=== PATIENT | female | born 1965 | race Caucasian/White ===

== ENCOUNTER → 2019-06-23 08:51 | Outpatient (POV) | payer OTHER, SELFPAY | PROVIDERS: Visit Provider Dermatology | DX: Z00.00 Encounter for general adult medical examination without abnormal findings (principal) ==

== ENCOUNTER 2022-01-01 13:02 | Emergency (ER) | payer OTHER, SELFPAY ==
--- NOTE | 2022-01-01 13:01 | ECG_ITS ---
APPROVED REPORT Exam: Resting ECG HR:87 bpm ECG Measurements Heart Rate 87 AXES WY 154 P 77 QRSd 101 QRS 53 QT 390 T 73 QTc 434 Conclusion SINUS RHYTHM NORMAL ECG UNCONFIRMED REPORT Electronically signed by : Florencio Watson MD 01/02/2022 21:09:39
[2022-01-01 13:02] VITALS: BP 147/80; PULSE 97; RESP 18; TEMP 37; O2SAT 98; BMI 28.3
--- NOTE | 2022-01-01 13:03 | HMH.EDCP ---
ED Disposition Clinical Impression: Costochondritis Disposition: Home, Self-Care Condition on Discharge: Fair Instructions: DI for Atypical Chest Pain Additional Instructions: Follow-up with your primary care doctor in about 2 to 3 days even if you feel well. Return to the emergency department immediately if you feel worse in any way. - Critical Care Critical Care Time: No Attestation: On , the high probability of a clinically significant, sudden or life threatening deterioration of the following system(s) required my full and direct attention, intervention and personal management. The time I documented below is in addition to time spent performing reported procedures but includes the following listed in this critical care notation. Medical Decision Making - Medical Records Medical records reviewed: Yes: I reviewed the patient's medical records. - Rob Inquiry Pt receiving controlled substance: No Vital Signs: 01/01/22 13:02 01/01/22 13:31 01/01/22 14:00 Temperature 98.6 F Temperature Source Oral Pulse Rate 84 81 Pulse Rate [Right] 97 H Respiratory Rate 18 16 16 Blood Pressure 131/59 L 151/70 H Blood Pressure [Right Arm] 147/80 H Blood Pressure Mean 98 97 Blood Pressure Mean [Right Arm] 102 Blood Pressure Source [Right Arm] Automatic Cuff Blood Pressure Position [Right Arm] Sitting 02 Sat by Pulse Oximetry 98 98 95 Oxygen Delivery Method Room Air - Lab Data Lab results reviewed: Yes: I reviewed the patient's lab results. Lab Results 01/01/22 13:03: Sodium 140, Potassium 3.2 L, Chloride 105, Carbon Dioxide 27, Anion Gap 11.2, BUN 18 H, Creatinine 0.80, Estimated Creat Clear 104, Estimated GFR 75, Est GFR ( Amer) 90, Glucose 191 H, Calcium 9.2, Total Bilirubin 0.4, AST 34, ALT 32, Alkaline Phosphatase 84, Troponin I < 0.01, Total Protein 6.9, Albumin 4.2, Globulin 2.7, Albumin/Globulin Ratio 1.6 01/01/22 13:05: WBC 15.4 H, RBC 4.61, Hgb 14.2, Hct 42.7, MCV 92.7, MCH 30.8, MCHC 33.2, RDW 13.9, Plt Count 296, MPV 8.1, Neut % (Auto) 74.9, Lymph % (Auto) 18.4, Saunders % (Auto) 4.3, Eos % (Auto) 1.1, Baso % (Auto) 1.2, Neut # (Auto) 11.5 H, Lymph # (Auto) 2.8, Saunders # (Auto) 0.7, Eos # (Auto) 0.2, Baso # (Auto) 0.2, Total Counted 100, Neutrophils % (Manual) 70, Lymphocytes % (Manual) 23, Monocytes % (Manual) 5, Eosinophils % (Manual) 2, Platelet Estimate Normal, RBC Morphology Normal Result diagrams: 01/01/22 13:05 01/01/22 13:03 Orders (Tests/Meds): ORDERS Category Date Time Status Troponin I Q3H Lab 01/01/22 16:15 Ordered - Radiology Data #1 Image Reviewed: Yes I reviewed the patient's radiology results, Yes I reviewed the patient's radiology image, Yes I have reviewed radiologist's interpretation Preliminary Findings: Normal/NAD - ECG Data Tracing #1 I reviewed this ECG and interpreted as documented below: The patient is EKG was done at 1:01 PM. It shows a normal sinus rhythm with a ventricular rate of 87 bpm there are no abnormalities seen. The axes are normal the intervals are normal. There is no ischemia. Normal Sinus Rhythm: Yes Medical Decision Narrative: The patient's work-up in the emergency department did not reveal any life-threatening or dangerous causes for the patient's chest pain. The pain is reproducible with palpation of the anterior chest wall. This is highly suggestive of costochondritis. The pain has been ongoing for approximately 2 days and has been constant. Her troponin is undetectable. Is very low risk for coronary artery disease/myocardial infarction today. His chest x-ray was unremarkable. She has an elevated white blood cell count which is a nonspecific finding. I feel that the patient can be safely discharged home in stable condition. Chest Pain HPI - General Stated Complaint: chest pain Time Seen by Provider: 01/01/22 13:03 Mode of Arrival: Ambulatory - History of Present Illness HPI narrative: The patient prese
--- NOTE | 2022-01-01 13:07 | XR_ITS ---
FINAL REPORT CLINICAL HISTORY: CP FINDINGS: SINGLE VIEW CHEST The heart size is enlarged. The mediastinum is within normal limits. No acute pulmonary abnormality is identified. There is no evidence of pneumothorax. The bony thorax is intact. IMPRESSION: No acute cardiopulmonary process. Reviewed, Interpreted and Dictated by Donald Delong III, MD Transcribed by Juvencio Kapoor Authenticated by Donald Delong III, MD on 01/01/2022 02:27:16 PM [facility]
[2022-01-01 13:18] LABS: Basophils # 0.2 K/mm3 (0-0.2); Basophils % 1.2 % (0.1-2.0); Eosinophils # 0.2 K/mm3 (0.0-0.4); Eosinophils % 1.1 % (0.1-12.0); Hematocrit 42.7 % (37.0-47.0); Hemoglobin 14.2 g/dL (12.2-16.2); Lymphocytes # 2.8 K/mm3 (0.7-4.5); Lymphocytes % 18.4 % (10-50); Mean Corpuscular HGB Conc 33.2 g/dL (31.8-35.4); Mean Corpuscular Hemoglobin 30.8 pg (27.0-31.2); Mean Corpuscular Volume 92.7 fl (81-99); Mean Platelet Volume 8.1 fl (7.4-10.4); Monocytes # 0.7 K/mm3 (0.1-1.0); Monocytes % 4.3 % (1.7-9.3); Neutrophils # 11.5 K/mm3 (1.8-7.8); Neutrophils % 74.9 % (37.0-80.0); Platelet Count 296 K/mm3 (142-424); Red Blood Count 4.61 M/mm3 (4.20-5.40); Red Cell Distribution Width 13.9 % (11.5-17.5); White Blood Count 15.4 K/mm3 (4.8-10.8)
[2022-01-01 13:21] LABS: Chloride 105 mmol/L (98-107); Potassium 3.2 mmoL/L (3.5-5.1); Sodium 140 mmol/L (136-145)
[2022-01-01 13:22] LABS: MANUAL DIFFERENTIAL MANUAL DIFFERENTIAL (MANUAL DIFF)
[2022-01-01 13:23] LABS: Alanine Aminotransferase 32 U/L (12-78); Aspartate Amino Transferase 34 U/L (14-36); Blood Urea Nitrogen 18 mg/dl (7-17); Creatinine Clearance Estimated 104 mL/min (50-200); Estimated Glomerular Filt Rate 75 ml/min (>60); GFR (African American) 90 ML/MIN (>60)
[2022-01-01 13:24] LABS: Albumin Level 4.2 g/dl (3.5-5.0); Albumin/Globulin Ratio 1.6 (1.1-1.8); Alkaline Phosphatase 84 U/L (38-126); Anion Gap 11.2 mEq/L (5-15); Bilirubin,Total 0.4 mg/dl (0.2-1.3); Calcium 9.2 mg/dl (8.4-10.2); Carbon Dioxide 27 mmol/L (22.0-30.0); Globulin 2.7 g/dL (1.3-3.2); Glucose 191 mg/dl (74-100); Total Protein,Serum 6.9 g/dl (6.3-8.2)
[2022-01-01 13:31] VITALS: BP 131/59; PULSE 84; RESP 16; O2SAT 98
[2022-01-01 13:33] LABS: Eosinophils % 2 % (0-3); Lymphocytes % 23 % (10-50); Monocytes % 5 % (2-9); Neutrophils % 70 % (42-76); Platelet Estimate Normal; RBC Morphology Normal; Total Cells Counted 100
[2022-01-01 13:36] LABS: Troponin I < 0.01 ng/ml (0.00-0.034)
[2022-01-01 14:00] VITALS: BP 151/70; PULSE 81; RESP 16; O2SAT 95
--- NOTE | 2022-01-01 14:04 | PC.NURSE ---
Updated pt on POC and that MD reviewing lab results. No new needs at this itme
[2022-01-01 14:40] VITALS: BP 154/70; PULSE 80; RESP 16; TEMP 36.9; O2SAT 98
== END 2022-01-01 14:41 | disposition home or self-care (01) ==
PROVIDERS: Emergency Provider Emergency Medicine; PCP Internal Medicine
DX: M94.0 Chondrocostal junction syndrome [Tietze] (principal); F17.210 Nicotine dependence, cigarettes, uncomplicated; Z88.0 Allergy status to penicillin
CPT/HCPCS: 71045; 80053; 84484; 85007; 85025; 93005; 99213; G0463

== ENCOUNTER 2025-01-01 13:40 | Emergency (ER) | payer BC, SELFPAY ==
[2025-01-01 14:40] VITALS: BP 150/87; PULSE 79; RESP 16; TEMP 36.8; O2SAT 98; BMI 29.3
--- OUTSIDE RECORDS SUMMARY | 2025-01-01 14:51 | XMS_ITS | Continuity of Care Document ---
Author Organization [facility] Address [address] [place] [address] Assessment No assessment recorded. Plan of Treatment Reminders Order Date Submit Date Provider Last Modified By Organization Details Last Modified Time Details Appointments HEARING AID EVALUATIO N 2024 10:00A M LANI WEI AUD Not available Not available Not available Lab None recorded. Referral None recorded. Procedures None recorded. Surgeries None recorded. Imaging None recorded. Medication Orders None recorded. Patient TargetsNo targets recorded. Patient Instructions Encounter Date Encounter Id Patient Instructions Last Modified By Organization Details Last Modified Time 12/17/2024 [id number] Patient is good/excellent hearing aid candidate in the {{Right Left* Rig ht/Left}} ear(s). Fair/borderline candidate in the Right ear. [email or web address] Not available 12/17/2024 11:42:19 Reason for Referral None Reported. Results Created Date Observation Date Name Description Value Unit Range Abnormal Flag Note LastModifiedBy Organization Detail LastModifiedTime 12/29/1912/17/2024 audio gram No observ ation record ed. BARCODE Not Available 2024 15:33:54 Result Notes None recorded. Procedures Surgical History Date Name Laterality Status Provider Name and Address Organization Details Recorded Time 12/18/19 Audiogram completed FUNMI MASON [address] [place], [address] 12/17/2024 11:41:52 06/18/20 Binocular Microscopy completed ALBIN EMANUEL MD [address] [place], [address], [facility] 06/18/2024 11:27:47 08/08/20 24 Cerumen removal - Instruments, Unilateral completed Gabi Jones [facility] 04/02/2024 09:07:10 procedure on brain completed Seamus Mcgraw [facility] 04/02/2024 08:43:32 delivery completed Seamus Mcgraw [facility] 04/02/2024 08:43:39 Appendectomy completed Seamus Lucien [facility] 04/02/2024 08:43:50 hysterectomy completed Seamus Lucien [facility] 04/02/2024 08:43:58 Imaging Results None recorded. Procedure Notes None recorded. Medical Equipment None Reported. Allergies Allergen ID Allergen Name Allergen Category Reaction Reaction Severity Criticality Documentation Date Start Date Code Code System Note Provider Name and Address Organization Details Recorded Time 206610 tetracycl ine medicatio n Not available Not available unabletoasse 04/02/2024 35601 RxNorm Seamus Mcgraw [facility] 08:41:18 575151 Product containin g penicilli n (product) medicatio n Not available Not available Not available 04/02/2024 01298 8001 SNOMED Seamus Lucien [facility] 08:41:25 Medications Name Sig Start Date Stop Date Status Note LastModified by Organization Details LastModified Time clindamyci n HCl 300 mg capsule Take 1 capsule 3 times a day by oral route for 7 days. 2023 active Not Available Not Available Not Avai lable hydrocodon e 5 mg-acetami nophen 325 mg tablet Take 1 tablet every 6 hours by oral route for 5 days. 2023 active Not Available Not Available Not Avai lable ondansetro n 4 mg disintegra ting tablet Place 1 tablet(s) by transling ual route every 8 hours as needed for nausea. 2023 active Not Available Not Available Not Avai lable losartan 100 mg tablet Take 1 tablet every day by oral route. active Not Available Not Available No t Available ciprofloxa glenda 0.3 %-dexameth asone 0.1 % ear drops,susp ension INSTILL 4 DROPS INTO AFFECTED EAR(S) BY OTIC ROUTE 2 TIMES PER DAY STARTING ON 9/27 09/23/ 2024 active completed Not Available Not Available Not Avai lable atorvastat in active Not Available Not Available Not Available simvastati n 2009 active Medicatio n Descripti on: simvastat in; Route:ora l; refills:0 Not Available Not Available Not Available Prilosec active Not Available Not Avai lable Not Available metformin active Not Available Not Mary ilable Not Available Trulicity 0.75 mg/0.5 mL subcutaneo us pen injector Inject by subcutane ous route. active Not Available Not Available No t Available Vitals Date Recorded Body height Body mass index (BMI) Body weight Heart rate Systolic blood pressure Diastolic blood pressure Provider Name and Address Organization Details Last Updated DateTime 5 170.18 cm 28.7 kg/m2 03520.4 g 87 /min 171 mm[Hg] 92 mm[Hg] Seamus Mcgraw [facility] 5 10:36:05 Social History None recorded. Functional Status None recorded. Mental Status None recorded. Family History Nothing Reported. Medical History No medical history recorded. Gynecological HistoryNo gynecological history recorded. 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 On CT has opacificat ion by middle ear bones. Suspect cholesteat joe. Tinnitus of left ear 093 [id number] 106 H93.12 Dysfunctio n of left eustachian tube [id number] 253111 H69.92 [id number] LANI LYN, FUNMI [facility] [address] [place] [address] 12/17/2024 10:54:18 12/17/2024 12:05:52 Sensorineural hearing loss of bilateral ears 724551926 H90.3 Bilateral tinnitus 05390 24753 102 H93.13 Health Concerns Section Related Observation LastModified by Organization Detai ls LastModified Time None Recorded Concern Status LastModified by Organization Details LastModified Time None Recorded Payers Encounter Date Sequence Insurance Name Policy Number Policy Lozano Covered Member ID Lozano Member ID Guarantor Name 12/17/2024 1 [place] [id number] Mario Alberto Anderson [id number] Brittanie Anderson Notes Date Note Type Note Provider Name and Address Organization Details Recorded Time 12/17/2024 text/html Chief Complaint: Hx of cholesteatoma of left middle earTiming:Duration: Location: AsSeverity: mildQuality:Context :Modifying Factors: Left tympanoplasty with removal of cholesteatoma 05/18/24, continues to smokeAssoc signs and symptoms: As otalgia, As pressure, no otorrhea, tinnitus is much louder, hearing down As, lack of sleep ALBIN EMANUEL MD [address] [place], [address], [facility] 12/17/2024 17:27:31 OBGyn Episode No OBEpisode recorded.
--- OUTSIDE RECORDS SUMMARY | 2025-01-01 14:51 | XMS_ITS | Data Portability ---
Author Organization [facility] Address [address] [place] [address] Assessment Encounter Date Assessment Date Assessment LastModified by Organization Details LastModified Time 05/18/2024 05/18/2024 SURGERY DATE: 05/18/2024. PREOPERATIVE DIAGNOSIS: Left tympanic membrane cholesteatoma. POSTOPERATIVE DIAGNOSIS: Left tympanic membrane cholesteatoma. PROCEDURE: Left tympanoplasty with removal of cholesteatoma. ANESTHESIA: General anesthesia. ESTIMATED BLOOD LOSS: 5 mL. COMPLICATIONS: None. FINDINGS: Posterior superior cholesteatoma, status post removal with subsequent tympanoplasty reconstruction of the residual tympanic membrane defect. SURGEON: Albin Pickett MD OPERATIVE NOTE: The patient was brought to the OR and laid in supine position. General anesthesia was induced. Patient was prepped and draped in the usual fashion. [facility] was set up and confirmed to be working appropriately. Lidocaine with epinephrine 1:100,000 was injected into the postauricular incision site as well as to the external auditory canal. The patient had a cholesteatoma in the posterior superior aspect of her tympanic membrane. Using the curved [place] blade, I made the Palva flap incisions in the canal. I then went postauricularly. I dissected through the skin and subcutaneous tissue and identified the temporalis fascia. A small amount of fascia was removed and placed on the back-table for reconstructing the eardrum at the end of the case. I then dissected through the periosteum down onto the mastoid, elevated the periosteum anteriorly to gain access to the external auditory canal. The Palva flap was raised and then retracted anteriorly with a [place]. I then elevated the tympanomeatal flap gaining access to the middle ear space. The patient had an obvious cholesteatoma in the posterior superior aspect of the tympanic membrane, which was retracting up into the attic. Using the small currettes, I was able to perform a limited atticotomy gaining better access to the cholesteatoma. It then was meticulously excised with its capsule out from the middle ear space. There was mucopurulence draining from the cholesteatoma sac. She also had a significant amount of inflamed granulation tissue in her middle ear, particularly around her incus and incudostapedial junction. Her ossicles did appear to be intact on palpation of the malleus. I did use the 30-degree angled scope to confirm no residual obvious cholesteatoma in the middle ear or attic. Once the cholesteatoma was excised, this left a residual approximately 20% perforation in the posterior superior aspect of the tympanic membrane. Ciprodex soaked Gelfoam was placed in the middle ear. The fascia graft was then placed in an underlay fashion and then the tympanomeatal flap laid back down. Additional Ciprodex soaked Gelfoam was placed in the external auditory canal. The Palva flap was laid back down and the periosteum, subcutaneous tissue, and then post auricular incision closed. I then went to the external auditory canal again and filled the remainder of it with antibiotic ointment. A Kwan dressing was then applied. The patient turned back over to Anesthesia to be woken and extubated. [email or web address] Not available 05/21/2024 17:59:30 Plan of Treatment Reminders Order Date Submit Date Provider Last Modified By Organization Details Last Modified Time Details Appointments [facility] N 2024 10:00A Mouna WEI AUD Not available Not available Not available Lab None recorded. Referral None recorded. Procedures None recorded. Surgeries None recorded. Imaging None recorded. Medication Orders ondansetr on 4 mg disintegr ating tablet 2023 024 NATY [facility], [address] [place], [place] [address], [phone], 05/18/2024 15:44:53 ciproflox acin 0.3 %-dexamet hasone 0.1 % ear drops,[facility] 2023 024 [email or web address] [facility], [address] [address] [place], [phone], 12/17/2024 10:31:59 clindamyc in HCl 300 mg capsule 2023 024 [facility], [address] [place] [address] [place], [phone], 05/18/2024 15:44:48 hydrocodo ne 5 mg-acetam inophen 325 mg tablet 2023 024 [facility], [facility] [address] [place], [phone], 05/18/2024 15:44:56 Patient TargetsNo targets recorded. Patient Instructions Encounter Date Encounter Id Patient Instructions Last Modified By Organization Details Last Modified Time 05/28/2024 [id number] 1. 10 days s/p Left tympanoplasty with removal of cholesteatoma 05/18/24 2. Continue antibiotic ointment to the incision 3. Left EAC debrided and packing removed 4. Continue Ciprodex drops 5. Dry ear precautions 6. Complete oral antibiotics 7. F/u 2-3 weeks Not available 05/28/2024 11:29:53 06/18/2024 [id number] 1. Left EAC debrided under binocular microscopy 2. Dry ear precautions for the next couple weeks 3. F/u 6 months Not available 06/18/2024 11:13:39 Appears to be healing as expected. Graft appears to have taken nicely without any evidence of residual perforation or drainage. Can stop with the eardrops. Would continue to place antibiotic ointment to her postauricular incision. [email or web address] Not available 06/18/2024 11:28:12 12/17/2024 [id number] Patient is good/excellent hearing aid candidate in the {{Right Left* Righ t/Left}} ear(s). Fair/borderline candidate in the Right ear. [email or web address] Not available 12/17/2024 11:42:19 12/17/2024 [id number] 1. 7 mo s/p Left tympanoplasty with removal of cholesteatoma 05/18/24 2. Left binocular microscopy performed in office today. Full risks, complications, and benefits of non-operative intervention have been thoroughly discussed. Understanding was expressed, informed consent given, and we will proceed with the discussed treatment plan. There were no questions for me at the end of the office visit. 3. Audiogram obtained in office today. Results reviewed and discussed with patient. 4. Recommend HAE 5. Discussed the option of wearing a left hearing aid to improve hearing and help mask tinnitus 6. F/u 12 mo - recheck left ear [email or web address] Not available 12/17/2024 11:50:34 Well-healed from the tympanoplasty and cholesteatoma removal surgery. No evidence of obvious cholesteatoma recurrence. Tympanic membrane graft is healed nicely. Follow-up audiometric's today shows predominantly for asymmetric sensorineural hearing loss. This appears relatively unchanged from before surgery. Her preoperative audio indicated there was more of a conductive component to the mixed loss versus today's which is more purely sensorineural. Wonder if perhaps the hearing loss on the side was more sensorineural in nature to begin with. We discussed a hearing aid to help with both her tinnitus as well as the hearing. Given the minimal conductive component I do not feel strongly about a second look with OCR at this time. Previous MRI scan was negative for any retrocochlear lesions [email or web address] Not available 12/17/2024 17:27:04 Reason for Referral None Reported. Results Created Date Observation Date Name Description Value Unit Range Abnormal Flag Note LastModifiedBy Organization Detail LastModifiedTime 05/07/2005/07/2024 COMPL ETE BLOOD COUNT white blood cells 11.5 10*3/ uL 3.8-10 .8 high Not Available [facility] [address] [place], [address], 05/07/2024 12:34:25 05/07/20 24 05/07/2024 COMPL ETE BLOOD COUNT red blood cells 4.57 10*6/ uL 3.80-5 .20 normal Not Available [facility] [address] [place], [address], 05/07/2024 12:34:25 05/07/20 24 05/07/2024 COMPL ETE BLOOD COUNT hemoglobin 14.1 g/dL 12.0-1 6.0 normal Not Available [facility] [address] [place] [address], [address], 05/07/2024 12:34:25 05/07/20 24 05/07/2024 COMPL ETE BLOOD COUNT hematocrit 41.2 % 35.0-4 7.0 normal Not Available [facility] [address] [place] [address], [address], 05/07/2024 12:34:25 05/07/2005/07/2024 COMPL ETE BLOOD COUNT MCV 90 fL 80-100 normal Not Available [facility] [address] [place] [address], [address], 05/07/2024 12:34:25 05/07/20 24 05/07/2024 COMPL ETE BLOOD COUNT MCH 31 pg 26-35 normal Not Available [facility] [address] [place] [address], [address], 05/07/2024 12:34:25 05/07/20 24 05/07/2024 COMPL ETE BLOOD COUNT MCHC 34 g/dL 32-36 normal Not Available [facility] [address] [place] [address], [address], 05/07/2024 12:34:25 05/07/2005/07/2024 COMPL ETE BLOOD COUNT RDW 13.5 % 11.0-1 5.0 normal Not Available [facility] [address] [place] [address], [address], 05/07/2024 12:34:25 05/07/2005/07/2024 COMPL ETE BLOOD COUNT MPV 8.5 fL 6.2-10 .5 normal Not Available [facility] [address] [place] [address], [address], 05/07/2024 12:34:25 05/07/20 24 05/07/2024 COMPL ETE BLOOD COUNT platelet count 281 10*3/ uL 150-40 0 normal Not Available [facility] [address] [place] [address], [address], 05/07/2024 12:34:25 05/07/20 24 05/07/2024 COMPL ETE BLOOD COUNT neutrophil,a bsolute 7.0 10*3/ uL 1.6-8. 4 normal Not Available [facility] [address] [place] [address], [address], 05/07/2024 12:34:25 05/07/20 24 05/07/2024 COMPL ETE BLOOD COUNT lymphocyte,a bsolute 3.6 10*3/ uL 0.4-5. 1 normal Not Available [facility] [address] [place] [address], [address], 05/07/2024 12:34:25 05/07/20 24 05/07/2024 COMPL ETE BLOOD COUNT monocyte,abs olute 0.7 10*3/ uL 0.0-1. 2 normal Not Available [facility] [address] [place] [address], [address], 05/07/2024 12:34:25 05/07/20 24 05/07/2024 COMPL ETE BLOOD COUNT eosinophil,a bsolute 0.1 10*3/ uL 0.0-0. 8 normal Not Available [facility] [address] [place] [address], [address], 05/07/2024 12:34:25 05/07/20 24 05/07/2024 COMPL ETE BLOOD COUNT basophil,abs olute 0.0 10*3/ uL 0.0-0. 3 normal Not Available [facility] [address] [place] [address], [address], 05/07/2024 12:34:25 05/07/20 24 05/07/2024 COMPL ETE BLOOD COUNT % neutrophils 60.9 % 42.0-7 8.0 normal Not Available [facility] [address] [place] [address], [address], 05/07/2024 12:34:25 05/07/2005/07/2024 COMPL ETE BLOOD COUNT % lymphocytes 31.1 % 11.0-4 7.0 normal Not Available [facility] [address] [place] [address], [address], 05/07/2024 12:34:25 05/07/20 24 05/07/2024 COMPL ETE BLOOD COUNT % monocytes 6.3 % 0.0-11 .0 normal Not Available [facility] [address] [place] [address], [address], 05/07/2024 12:34:25 05/07/2005/07/2024 COMPL ETE BLOOD COUNT % eosinophils 1.3 % 0.0-7. 0 normal Not Available [facility] [address] [place] [address], [address], 05/07/2024 12:34:25 05/07/2005/07/2024 COMPL ETE BLOOD COUNT % basophils 0.4 % 0.0-3. 0 normal Not Available [facility] [address] [place] [address], [address], 05/07/2024 12:34:25 05/07/2005/07/2024 COMPL ETE BLOOD COUNT nucleated red cells 0.1 % 0.0-0. 9 normal Not Available [facility] [address] [place] [address], [address], 05/07/2024 12:34:25 05/07/2005/07/2024 COMPL ETE BLOOD COUNT nucleated RBCs, absolute 0.01 10*3/ uL not estab. normal Not Available [facility] [address] [place] [address], [address], 05/07/2024 12:34:25 05/07/20 24 05/07/2024 BASIC METAB OLIC PANEL glucose 80 mg/dL 74-100 normal Not Available [facility] [address] [place] [address], [address], 05/07/2024 16:56:01 05/07/20 24 05/07/2024 BASIC METAB OLIC PANEL blood urea nitrogen 15 mg/dL 6-20 normal Not Available [facility] [address] [place] [address], [address], 05/07/2024 16:56:01 05/07/20 24 05/07/2024 BASIC METAB OLIC PANEL creatinine 0.70 mg/dL 0.50-0 .95 normal Not Available [facility] [address] [place] [address], [address], 05/07/2024 16:56:01 05/07/20 24 05/07/2024 BASIC METAB OLIC PANEL BUN/creatini ne ratio 21 (calc ) 10-20 high Not Available [facility] [address] [place] [address], [address], 05/07/2024 16:56:01 05/07/20 24 05/07/2024 BASIC METAB OLIC PANEL sodium 142 mmol/ L 136-14 5 normal Not Available [facility] [address] [place] [address], [address], 05/07/2024 16:56:01 05/07/20 24 05/07/2024 BASIC METAB OLIC PANEL potassium 4.0 mmol/ L 3.4-5. 0 normal Not Available [facility] [address] [place] [address], [address], 05/07/2024 16:56:01 05/07/20 24 05/07/2024 BASIC METAB OLIC PANEL chloride 105 mmol/ L 98-107 normal Not Available [facility] [address] [place] [address], [address], 05/07/2024 16:56:01 05/07/20 24 05/07/2024 BASIC METAB OLIC PANEL carbon dioxide 25 mmol/ L 22-31 normal Not Available [facility] [address] [place], [address], 05/07/2024 16:56:01 05/07/20 24 05/07/2024 BASIC METAB OLIC PANEL anion gap 12 (calc ) 7-25 normal Not Available [facility] [address] [place], [address], 05/07/2024 16:56:01 05/07/20 24 05/07/2024 BASIC METAB OLIC PANEL calcium 9.2 mg/dL 8.6-10 .2 normal Not Available [facility] [address] [place], [address], 05/07/2024 16:56:01 05/07/20 24 05/07/2024 BASIC METAB OLIC PANEL GFR 101 >= 60 normal NOT E New calcu latio n for GFR (CKD- EPI 2020) is formu lated witho ut race adjus tment facto rs at the recom menda tion of the [facility] ty of Nephr ology . This calcu latio n has not been valid ated in pregn ant women . For pedia tric patie nts refer to https :[email or web address] escoto.mehran rg/aryan maguire s/MALCOLMO QI/gf r_cal culat orPed Not Available [facility] [address] [place], [address], 05/07/2024 16:56:01 05/18/20 24 05/18/2024 SURGI RONNA surgical SEE BELOW normal Depar tment of Patho logy Surgi ronna Patho logy Repor t NAME: SHILA LORA PATH. :SS-2 49 Copy to: Diagn osis: Left ear harry steat moncho: Kerat in debri s; see comme nt. COMME NT: Limit ed sampl e to evalu ate which could be consi stent with harry steat moncho cyst radha nts. SOURC E OF SPECI MEN: EAR, LEFT HARRY STEAT MONCHO CLINI RONNA INFOR MATIO N: H 93.12 H 90.A 32 H 69.92 MIXED CONDU CTIVE AND SENSO RINEU RAL HEARI NG LOSS OF LEFT EAR Gross Descr iptio n: Recei toñito in forma jailyn label ed with the patie nt's name and desig nated left ear harry steat moncho is a singl e fragm ent of pale gauthier tissu e measu ring 0.5 cm. Entir deena submi tted in one casse tte label ed A1. MT 05/18 03:42 PM Micro scopi c Descr iptio n: A micro scopi c exami natio n has been perfo rmed and the resul t(s) are as noted above . ALTA GAYLE Lencho AMBRIZ MD Mercedes d Out Date: 05/19 11:18 Page 1 of 1 Not Available [facility] [address] [place] [address], [address], 05/19/2024 11:18:22 04/29/20 24 04/29/2024 MR brain and IAC w/wo contr ast [address] [address] Patitanner t Name: STANISLAW Grijalva t : [birth year] Patien t Orderi ng Provid er: ALBIN FISCHER NANCY EXAM DATE: 2023 EXAM: MR BRAIN AND IAC W/WO CONTRA ST HISTOR Y: 58-yea r-old female with tinnit us and hearin g loss in the left ear. COMPAR DIO: CT of the tempor al bones of the same date. The patien t did not requir e sedati on for this exam. A baseli ne serum creati nine with eGFR was obtain ed prior to inject ion of contra st medium due to the patien ts risk factor s for GLENDA. Calcul ated eGFR at time of exam was gfr 68 FINDIN GS: The ventri cles are symmet gigi, but modera tely enlarg ed.. There is no mass, mass effect , or midlin e shift. There is no abnorm al extra- axial fluid, intrac ranial hemorr joanne, or infarc tion. The diffus ion weight ed sequen kaity are normal . There are modera te perive ntricu lar white matter change s. There are multip le puncta te subcor tical and perive ntricu lar white matter lesion s. There is an old insult in the right fronta l lobe. There is a defect along the anteri or aspect of the body of the corpus callos um. There is a prior right fronta l cranio usman. After intrav enous admini strati on of 7.[address] ([facility] [address]-0 1), there is no abnorm al enhanc ement in the brain. There is no mass or abnorm al enhanc ement along the crania l nerves or in the manager international al audito ry canals . There is ill-de fined enhanc ement in the left middle ear in the right left mastoi d air cells. The manager international al caroti d and basila r flow-v oids are normal . There is no mucosa l thicke chava in the parana stacy sinuse s. There is minima l fluid in the left mastoi d air cells. IMPRES JORGE: 1. There is modera te diffus e cerebr al atroph y and white matter change s in the brain. There is an old insult in the right fronta l lobe and a defect in the corpus callos um. There is a prior right fronta l cranio usman. 2. There is no discre te mass or abnorm al enhanc ement along the 7th or 8th crania l nerves . Interp reted By: Rosy lopez MD Electr onical ly Signed By: Rosy lopez MD on 04/29/20 24 1:41 PM [facility] [address], [address], 05/03/2024 20:16:43 04/29/20 24 04/29/2024 CT, tempo ral bone, w/o contr ast [facility] [address] [place] [address] Patitanner t Name: STANILSAW avalos : [birth year] Patitanner t Orderi ng Provid er: ALBIN KORILencho NANCY EXAM DATE: 2023 EXAM: CT TEMPOR AL BONES W/O CONTRA ST HISTOR Y: 58-yea r-old female with hearin g loss and tinnit us in the left ear. COMPAR DIO: None. TECHNI QUE: CT of the petrou s tempor al bone was obtain ed utiliz ing multip le contig uous 0.67 mm axial slices withou t the use of intrav enous contra st. Axial, Stenve rs, Poschl , and orr l reform ats were also obtain ed. FINDIN GS: There is a focal soft tissue in the left epitym panum latera l to the ossicl es with mild blunti ng of the scutum . There is no nba erosio n of the ossicl es. There is a small amount of fluid or inflam matory tissue in the adjace nt left mastoi d air cells which are hypoae rated. The paper guillotine operator al audito ry canals , tympan ic membra aleida, and osseou s labyri nths are normal bilate rally. There is no eviden ce of erosio n of the ossicl es, right scutum , or tegmen tympan i. The right mastoi d air cells are well-p neumat ized and well aerate d. No suspic ious osseou s lesion or fractu re is identi fied. The visual ized brain parenc hyma appear s normal . There is mild mucosa l thicke chava in the right maxill tacos sinus and minima l mucosa l thicke chava in the left maxill tacos sinus. There is nasal septal deviat ion to the right with septal impact ion and severe mucosa l hypert rophy of the nasal turbin ates. IMPRES JORGE: 1. There is focal soft tissue in the left epitym panum latera l to the ossicl es with mild blunti ng of the scutum . This is charac terist ic of a pars flacci da choles teatom a or focal inflam matory change s. There is a small amount of adjace nt fluid or inflam matory tissue in the left mastoi d air cells. Interp reted By: Rosy lopez MD Electr onical ly Signed By: Rosy lopez MD on 04/29/20 1:49 PM [email or web address] [facility] [address] [place], [address], 05/01/2024 08:05:13 05/07/20 24 05/07/2024 elect rocar diogr am No observ ation record ed. BARCODE Not Available 2023 10:55:35 05/07/20 24 05/07/2024 elect rocar diogr am No observ ation record ed. [email or web address] [facility] [address] [facility], [place], [address], 05/07/2024 13:20:36 12/29/19 25 12/17/2024 audio gram No observ ation record ed. BARCODE Not Available 2024 15:33:54 Result Notes None recorded. Procedures Surgical History Date Name Laterality Status Provider Name and Address Organization Details Recorded Time 12/18/19 Audiogram completed FUNMI MASON [address] [place], [address], [facility] 12/17/2024 11:41:52 06/18/20 Binocular Microscopy completed ALBIN PICKETT MD [address] [place], [address], [facility] 06/18/2024 11:27:47 04/02/20 Cerumen removal - Instruments, Unilateral completed Gabi [facility] 04/02/2024 09:07:10 procedure on brain completed Seamus Mcgraw [facility] 04/02/2024 08:43:32 delivery completed Seamus Mcgraw [facility] 04/02/2024 08:43:39 Appendectomy completed Seamus Mcgraw [facility] 04/02/2024 08:43:50 hysterectomy completed Seamus Mcgraw [facility] 04/02/2024 08:43:58 Imaging Results Imaging Date Name Status LastModified by Organization Details LastModified Time 04/29/2024 MR brain and IAC w/wo contrast completed NATY [facility] [address] [place], [address], 05/03/2024 20:16:43 04/29/2024 CT, temporal bone, w/o contrast completed [email or web address] [facility] [address] [place], [address], 05/01/2024 08:05:13 05/07/2024 electrocardiogram completed BARCODE Informa tion not available 05/07/2024 10:55:35 05/07/2024 electrocardiogram completed [email or web address] [facility] [address] [facility], [place], [address], 05/07/2024 13:20:36 12/17/2024 audiogram completed BARCODE Information no t available 12/28/2024 15:33:54 Procedure Notes None recorded. Medical Equipment None Reported. Allergies Allergen ID Allergen Name Allergen Category Reaction Reaction Severity Criticality Documentation Date Start Date Code Code System Note Provider Name and Address Organization Details Recorded Time 670195 tetracycl ine medicatio n Not available Not available unabletoasse ss 04/02/2024 17672 RxNorm Seamus Lucien [facility] 4 08:41:18 605634 Product containin g penicilli n (product) medicatio n Not available Not available Not available 04/02/2024 85443 8001 SNOMED Seamus Lucien [facility] 4 08:41:25 Medications Name Sig Start Date Stop [...] ROUTE 2 TIMES PER DAY STARTING ON 05/22 active completed Not Available Not Available Not [...] and Address Organization Details Last Updated DateTime 4 170.18 cm 29.3 kg/m2 58544.7 7 g 69 /min 200 mm[Hg] 105 mm[Hg] [facility] 4 11:08:57 Date Recorded Body height Body mass index (BMI) Body weight Heart rate Systolic blood pressure Diastolic blood pressure Provider Name and Address Organization Details Last Updated DateTime 4 170.18 cm 29 kg/m2 77353.5 9 g 81 /min 171 mm[Hg] 91 mm[Hg] [facility] 4 10:49:03 Date Recorded Body height Body mass index (BMI) Body weight Heart rate Systolic blood pressure Diastolic blood pressure Provider Name and Address Organization Details Last Updated DateTime 5 170.18 cm 28.7 kg/m2 09483.4 g 87 /min 171 mm[Hg] 92 mm[Hg] [facility] 5 10:36:05 Social History None recorded. Functional Status None recorded. Mental Status None recorded. Family History Nothing Reported. Medical History No medical history recorded. Gynecological HistoryNo gynecological history recorded. Obstetrics History GPAL:G 0 P 0 0 0 0 Past Encounters Encounter ID Performer Location Encounter Start Date Encounter Closed Date Diagnosis/Indication Diagnosis SNOMED-CT Code Diagnosis ICD10 Code Diagnosis Note [id number] ALBIN PICKETT MD [facility] [address] [place], [place] [address] 04/02/2024 08:22:52 04/03/2024 07:56:52 Mixed conductive and sensorineural hearing loss of left ear [id number] 9107 H90.A32 Audiogram 03/20/24 at [facility]-n ormal ear exam after cerumenect corona. Suspect otoscleros is. Tinnitus of left ear 563 3616828 106 H93.12 Impacted c erumen in left ear 0962094077 271002 H61.22 Removed from the canal [id number] ALBIN PICKETT MD [facility] [address] [place], [place] [address] 05/07/2024 08:32:27 05/08/2024 04:36:36 Mixed conductive and sensorineural hearing loss of left ear [id number] 9107 H90.A32 Audiogram 03/20/24 at [facility]-n ormal ear exam after cerumenect corona.CT temporal bones and MRI brain/IAC 04/29/24 - normal MRI. On CT has opacificat ion by middle ear bones. Suspect cholesteat moncho. Tinnitus of left ear 657 0788260 106 H93.12 Impacted c erumen in left ear 1673917203 154240 H61.22 Removed from the canal Cholesteat moncho of left middle ear 8582865220 276311 H71.92 Dysfunctio n of left eustachian tube 9288677122 930617 H69.92 [id number] KRYSTIN NICHOLS MD [address] [place] [address] 05/07/2024 10:35:06 05/07/2024 10:59:37 Pre-surgery testing [id number] Z01.89 [id number] ALBIN PICKETT MD SURGERY SCHEDULE [address] [place] [address] 05/18/2024 10:56:25 05/18/2024 10:56:57 Localized swelling, mass and lump, neck [id number] R22.1 [id number] [place] [address] [place] [address] 05/28/2024 10:44:38 05/29/2024 04:41:41 Mixed conductive and sensorineural hearing loss of left ear [id number] 9107 H90.A32 Audiogram 03/20/24 at [facility]-n ormal ear exam after cerumenect corona.CT temporal bones and MRI brain/IAC 04/29/24 - normal MRI. On CT has opacificat ion by middle ear bones. Suspect cholesteat moncho. 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 On CT has opacificat ion by middle ear bones. Suspect cholesteat moncho. 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 On CT has opacificat ion by middle ear bones. Suspect cholesteat moncho. Tinnitus of left ear 624 0330009 106 H93.12 Dysfunctio n of left eustachian tube 0449056679 732357 H69.92 [id number] FUNMI LINO [facility] [address] [place] [address] 12/17/2024 10:54:18 12/17/2024 12:05:52 Sensorineural hearing loss of bilateral ears 438735892 H90.3 Bilateral tinnitus 25786 84605 102 H93.13 Health Concerns Section Related Observation LastModified by Organization Detai ls LastModified Time None Recorded Concern Status LastModified by Organization Details LastModified Time None Recorded Advance Directives Directive None Recorded Payers Insurance Date Sequence Insurance Name Policy Number Policy Lozano Covered Member ID Lozano Member ID Guarantor Name 01/01/2025 1 [place] [id number] 1 Mario Alberto Lora [id number] Brittanie Lora 04/28/2024 1 [employer] - OPEN ACCESS - NATIONAL (POS) Mario Alberto Lora [id number] Brittanie Lora Notes Date Note Type Note Provider Name and Address Organization Details Recorded Time 05/28/2024 text/html Chief Complaint: s/p Left tympanoplasty with removal of cholesteatomaTiming : 05/18/24Duration:Loc ation: AsSeverity:Quality: Context:Modifying Factors: ciprodex, clindamycin 300 x 7 days, norcoAssoc signs and symptoms: pain and tenderness of postauricular incision, tinnitus is much louder, hearing down As, has fullness and pressure, no known otorrhea. ALBIN PICKETT MD [address] [place], [address], [facility] 05/28/2024 18:01:17 06/18/2024 text/html Chief Complaint: s/p Left tympanoplasty with removal of cholesteatomaTiming : 05/18/24Duration:Loc ation: AsSeverity: moderateQuality:Con text:Modifying Factors: abx ointment to the incision, Ciprodex, completed clindamycin, continues to smokeAssoc signs and symptoms: pain and tenderness of postauricular incision, pulsatile tinnitus is much louder, hearing down As, has fullness and pressure, no otorrhea, no otalgia ALBIN PICKETT MD [address] [place], [address], [facility] 06/18/2024 11:28:49 12/17/2024 text/html Chief Complaint: Hx of cholesteatoma of left middle earTiming:Duration: Location: AsSeverity: mildQuality:Context :Modifying Factors: Left tympanoplasty with removal of cholesteatoma 05/18/24, continues to smokeAssoc signs and symptoms: As otalgia, As pressure, no otorrhea, tinnitus is much louder, hearing down As, lack of sleep ALBIN PICKETT MD [address] [place], [address], [facility] 12/17/2024 17:27:31 OBGyn Episode No OBEpisode recorded.
--- OUTSIDE RECORDS SUMMARY | 2025-01-01 14:51 | XMS_ITS | Continuity of Care Document ---
Author Organization [facility] Address [address] [place] [address] Assessment No assessment recorded. Plan of Treatment [...] By Organization Details Last Modified Time 12/17/2024 [id number] 1. 7 mo s/p Left tympanoplasty with [...] scan was negative for any retrocochlear lesions curt Not available 12/17/2024 17:27:04 Reason for Referral [...] Time 12/18/19 Audiogram completed FUNMI MASON [address] [place], [address], [facility] 12/17/2024 11:41:52 06/18/20 Binocular Microscopy completed ALBIN EMANUEL MD [address] [place] [address], [phone] 06/18/2024 11:27:47 04/02/20 Cerumen removal - Instruments, Unilateral completed Gabi Jones [facility] 04/02/2024 09:07:10 procedure on brain completed Seamus Mcgraw [facility] 04/02/2024 08:43:32 delivery completed Seamus Mcgraw [facility] 04/02/2024 08:43:39 Appendectomy completed Seamus Mcgraw [facility] 04/02/2024 08:43:50 hysterectomy completed Seamus Mcgraw [facility] 04/02/2024 08:43:58 Imaging Results None recorded. Procedure Notes None recorded. Medical Equipment None Reported. Allergies Allergen ID Allergen Name Allergen Category Reaction Reaction Severity Criticality Documentation Date Start Date Code Code System Note Provider Name and Address Organization Details Recorded Time 742955 tetracycl ine medicatio n Not available Not available unabletoasse ss 04/02/2024 11383 RxNorm Seamus Mcgraw [facility] 08:41:18 875129 Product containin g penicilli n (product) medicatio n Not available Not available Not available 04/02/2024 09231 8001 SNOMED Seamus Lucien [facility] 4 08:41:25 Medications Name Sig Start Date [...] Updated DateTime 5 170.18 cm 28.7 kg/m2 77858.4 g 87 /min 171 mm[Hg] 92 mm[Hg] Seamus Lucien [facility] 5 10:36:05 Social History None recorded. Functional Status None recorded. Mental Status None recorded. Family History Nothing Reported. Medical History No medical history recorded. Gynecological HistoryNo gynecological history recorded. 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 On CT has opacificat ion by middle ear bones. Suspect cholesteat joe. Tinnitus of left ear 863 9535700 106 H93.12 Dysfunctio n of left eustachian tube 1804882434 205521 H69.92 [id number] FUNMI LINO [facility] [address] [place] [address] 12/17/2024 10:54:18 12/17/2024 12:05:52 Sensorineural hearing loss of bilateral ears 311484168 H90.3 Bilateral tinnitus 44290 39635 102 H93.13 Health Concerns Section Related Observation LastModified by Organization Detai ls LastModified Time None Recorded Concern Status LastModified by Organization Details LastModified Time None Recorded Payers Encounter Date Sequence Insurance Name Policy Number Policy Lozano Covered Member ID Lozano Member ID Guarantor Name 12/17/2024 1 [place] [id number] Mario Alberto Anderson [id number] Brittanie Anderson Notes Date Note Type [...] As, lack of sleep ALBIN EMANUEL MD [address] [place] [address], [phone], [facility] 12/17/2024 17:27:31 OBGyn Episode No OBEpisode recorded.
--- NOTE | 2025-01-01 15:02 | ED_ITS ---
Discharge Plan Disposition Patient Disposition: Home, Self-Care Prescriptions Prescriptions: New sulfamethoxazole-trimethoprim [Bactrim DS] 800-160 mg tablet 1 tab PO BID 10 Days Qty: 20 0RF mupirocin 2 % ointment 1 applic topical BID 5 Days Qty: 22 0RF No Action metformin 1,000 mg tablet PO 90 Days furosemide 20 mg tablet PO 90 Days losartan-hydrochlorothiazide 100-12.5 mg tablet PO 90 Days triamcinolone acetonide 0.1 % ointment 1 applic TOPICAL DAILY citalopram 40 mg tablet PO 90 Days meloxicam 7.5 mg tablet PO 90 Days pioglitazone 15 mg tablet PO 90 Days glimepiride 4 mg tablet PO 90 Days atorvastatin 80 mg tablet PO 90 Days albuterol sulfate 90 mcg/actuation HFA aerosol inhaler 2 puff INHALATION Q6H PRN (Reason: bronchitis) 7 Days Qty: 6.7 0RF Rx Instructions: administer with spacer benzonatate 200 mg capsule 200 mg PO TID 7 Days Qty: 21 0RF Referrals Follow up/Referrals: Kia Cain MD [Primary Care Provider] - See instructions Activity Restrictions/Add. Instructions Additional Instructions/Restrictions: You were evaluated in the emergency department today. 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 Follow-up with your primary care provider for wound recheck. Take Tylenol and ibuprofen as needed for pain. Return to the emergency department for new or worsening symptoms Bactrim twice daily days, avoid alcohol while taking this. Apply ointment to both nostrils twice daily for 5 days. Use chlorhexidine soap everywhere except around eyes daily for 5-7 days. Apply to sponge, apply soap and suds to entire body (including crevices and soles of feet), petroleum terminal plant operator the shower for 2 to 3 minutes before rinsing. Be sure to wash all of your close, especially underwear and bras and hot soapy water. Clinical Impressions Clinical Impression: Cellulitis, Abscess Instructions Patient Instructions: DI for Skin Abscess Print Language Print Language: Estonian Discharge ED Provider: Salomón Joiner General Adult HPI <Stacy Garnett DO - Last Filed: 01/01/25 15:08> General Chief complaint: Skin/Abscess/Foreign Body Stated complaint: bit on back of right knee by unknown insect Time Seen by Provider: 01/01/25 14:33 Mode of Arrival: Ambulatory Source of Information: Patient Description of Symptoms (Recalled from ER Triage Doc. by RN): pt states she thinks she was bit by an insect 3d ago. pt states she did not see any insects. pt presents with a swollen area to her R posterior thigh with erythema and edema. pt states the pain is 9/10 and throbbing in nature. pt denies any drainage. History of Present Illness HPI narrative: This patient is a 59-year-old female with a history of prior brown recluse bite to her forehead, hyperlipidemia, diabetes coming to the emergency department for evaluation with concern for possible insect bite to the posterior aspect of the right thigh. She states its red, painful, swollen. She notes this feels similar to when she had a brown recluse bite to her forehead that she had to have excised in the past. She first noticed this 3 days ago. No systemic symptoms such as fevers, chills, or other concerns. Related Data Home Medications ?Medication ?Instructions ?Recorded ?Confirmed atorvastatin 80 mg tablet PO 90 days 07/30/18 07/30/18 citalopram 40 mg tablet PO 90 days 07/30/18 07/30/18 furosemide 20 mg tablet PO 90 days 07/30/18 07/30/18 glimepiride 4 mg tablet PO 90 days 07/30/18 07/30/18 losartan 100 PO 90 days 07/30/18 07/30/18 mg-hydrochlorothiazide 12.5 mg tablet meloxicam 7.5 mg tablet PO 90 days 07/30/18 07/30/18 metformin 1,000 mg tablet PO 90 days 07/30/18 07/30/18 pioglitazone 15 mg tablet PO 90 days 07/30/18 07/30/18 triamcinolone acetonide 0.1 % 1 applic topical DAILY 07/30/18 07/30/18 topical ointment Previous Rx's ?Medication ?Instructions ?Recorded albuterol sulfate 90 mcg/actuation 2 puff inhalation Q6H PRN 07/30/18 aerosol inhaler bronchitis 7 days #6.7 grams benzonatate 200 mg capsule 200 mg PO TID cough 7 days #21 caps 07/30/18 mupirocin 2 % topical ointment 1 applic topical BID 5 days #22 05/09/25 grams sulfamethoxazole 800 1 tab PO BID 10 days #20 tabs 01/01/25 mg-trimethoprim 160 mg tablet (Bactrim DS) Allergies Allergy/AdvReac Type Severity Reaction Status Date / Time aspirin Allergy Verified 01/01/22 13:07 Penicillins Allergy Verified 01/01/22 13:07 tetracycline Allergy Verified 01/01/22 13:07 PFSH <Stacy Garnett DO - Last Filed: 01/01/25 15:08> [facility] Disclaimer: The information contained in this section may have been updated after the patient was seen, as this information can be updated by other users. Social History (Updated 01/01/25 @ 15:08 by Stacy Garnett DO) Smoking Status: Current every day smoker tobacco type: cigarettes packs per day: 1 alcohol intake: never current occupational status: employed Travel in the last 8 weeks?: None household members: family housing: house Have you lived/traveled outside [place] in past 30 days?: No Contact w/someone who lives/traveled outside [place] past 30 days?: No Exposure to someone with infectious disease in past 14 days?: No Do you have a fever (greater than 100.4 F or 38 C)?: No Have you tested positive for COVID-19?: No Exposed to someone with COVID-19 in past 14 days?: No Do you have a sore throat?: No Do you have a cough?: No Do you have any weakness?: No Do you have any diarrhea?: No Are you experiencing any unusual bleeding?: No Do you have any muscle aches/pain?: No Do you have any abdominal pain?: No Are you experiencing loss of taste or smell?: No Other Medical History Have you received the Flu Vaccine for this season: No Have you received the Pneumonia Vaccine: No <Stacy Garnett DO - Last Filed: 01/01/25 15:08> ROS Obtained: Yes All systems reviewed & no additional complaints except as documented Physical Exam <Stacy Garnett DO - Last Filed: 01/01/25 15:08> General General appearance: alert and in no apparent distress Head Head exam: atraumatic and normocephalic Eye Eye exam: Present normal appearance, PERRL and EOMI ENT ENT exam: Present normal exam, normal oropharynx, mucous membranes moist and normal external ear exam Neck Neck exam: Present normal inspection, full ROM and trachea midline; Absent tenderness Chest Chest inspection: Present normal inspection and symmetric chest wall rise; Absent tenderness Respiratory Respiratory exam: Present normal lung sounds bilaterally; Absent respiratory distress, wheezes, stridor or accessory muscle use Cardiovascular Cardiovascular exam: Present regular rate and normal rhythm Abdominal Exam Abdominal exam: Present soft; Absent distention, tenderness or guarding Extremities Exam Extremities exam: Present full ROM, tenderness and normal capillary refill; Absent edema Expanded Lower Extremity Exam Right: Leg image: 2 1. Area of fluctuance with surrounding erythema Back Exam Back exam: Present normal inspection and full ROM; Absent tenderness Neurological Exam Neurological exam: Present alert, oriented X3, CN II-XII intact and normal gait; Absent motor sensory deficit Psychiatric Psychiatric exam: Present normal affect and normal mood Skin Skin exam: Present warm and dry Medical Decision Making <Stacy Garnett, DO - Last Filed: 01/01/25 15:08> Medical Records Medical records reviewed: Yes I reviewed the patient's medical records. Screening: Per USPSTF and CDC recommendations, given the prevalence of disease in our region, it is our hospital?s policy to screen for HIV and viral Hepatitis for all patients aged 18 and over and those with ongoing risk factors. Rob Inquiry Pt receiving controlled substance: No Vital Signs: 01/01/25 14:40 Temperature 98.3 F Temperature Source Oral Pulse Rate [Left] 79 Respiratory Rate 16 Blood Pressure [Right Arm] 150/87 H Blood Pressure Mean [Right Arm] 108 Blood Pressure Source [Right Arm] Automatic Cuff Blood Pressure Position [Right Arm] Sitting 02 Sat by Pulse Oximetry 98 Oxygen Delivery Method Room Air Lab Data Lab results reviewed: Yes I reviewed the patient's lab results. Orders (Tests/Meds): ED MEDICATIONS Discontinued Medications Generic Name Dose Route Start Last Admin Trade Name Freq PRN Reason Stop Dose Admin Acetaminophen 1,000 mg 01/01/25 14:53 01/01/25 15:04 Acetaminophen 500mg Tab PO 01/01/25 14:54 1,000 mg ONCE ONE Administration Ibuprofen 800 mg 01/01/25 14:53 01/01/25 15:03 Ibuprofen 400 Mg Tablet PO 01/01/25 14:54 800 mg ONCE ONE Administration Trimethoprim/Sulfamethoxazole 1 each 01/01/25 15:07 01/01/25 15:21 Sulfa/Trimethoprim 1 Tablet PO 01/01/25 15:08 1 each ONCE ONE Administration ORDERS Category Date Time Status POCUS Point of Care (ER Only) Stat Exams 01/01/25 14:53 Ordered Medical Decision Narrative: In summary, this patient is a 59-year-old female presenting to the Emergency Department for evaluation of insect bite to the right thigh. Differential diagnoses considered include but are not limited to insect bite, cellulitis, abscess. Ruling out the most morbid conditions drove assessment. It should be noted patient's history includes diabetes, hyperlipidemia, hypertension which may or may not be at goal therapy. This complicates all aspects of care by increasing patient's risk for morbidity. On exam, patient has an area of induration with surrounding erythema on the posterior right thigh, but is nontoxic-appearing with no systemic symptoms. Plan to perform [id number] ultrasound to evaluate for fluid collection to see if she needs incision and drainage. Patient care signed to the oncoming provider, Dr. Joiner, pending rooming of patient, US, dispo. <Salomón Joiner MD - Last Filed: 01/01/25 15:45> Vital Signs: 01/01/25 14:40 Temperature 98.3 F Temperature Source Oral Pulse Rate [Left] 79 Respiratory Rate 16 Blood Pressure [Right Arm] 150/87 H Blood Pressure Mean [Right Arm] 108 Blood Pressure Source [Right Arm] Automatic Cuff Blood Pressure Position [Right Arm] Sitting 02 Sat by Pulse Oximetry 98 Oxygen Delivery Method Room Air Orders (Tests/Meds): ED MEDICATIONS Discontinued Medications Generic Name Dose Route Start Last Admin Trade Name Freq PRN Reason Stop Dose Admin Acetaminophen 1,000 mg 01/01/25 14:53 01/01/25 15:04 Acetaminophen 500mg Tab PO 01/01/25 14:54 1,000 mg ONCE ONE Administration Ibuprofen 800 mg 01/01/25 14:53 01/01/25 15:03 Ibuprofen 400 Mg Tablet PO 01/01/25 14:54 800 mg ONCE ONE Administration Trimethoprim/Sulfamethoxazole 1 each 01/01/25 15:07 01/01/25 15:21 Sulfa/Trimethoprim 1 Tablet PO 01/01/25 15:08 1 each ONCE ONE Administration ORDERS Category Date Time Status POCUS Point of Care (ER Only) Stat Exams 01/01/25 14:53 Ordered Medical Decision Narrative: In summary, this patient is a 59-year-old female presenting to the Emergency Department for evaluation of insect bite to the right thigh. Differential diagnoses considered include but are not limited to insect bite, cellulitis, abscess. Ruling out the most morbid conditions drove assessment. It should be noted patient's history includes diabetes, hyperlipidemia, hypertension which may or may not be at goal therapy. This complicates all aspects of care by increasing patient's risk for morbidity. On exam, patient has an area of induration with surrounding erythema on the posterior right thigh, but is nontoxic-appearing with no systemic symptoms. Plan to perform [id number] ultrasound to evaluate for fluid collection to see if she needs incision and drainage. Patient care signed to the oncoming provider, Dr. Joiner, pending rooming of patient, US, dispo. Marisel: I assumed primary responsibility for this patient after signout from previous physician. On my evaluation, patient in no pain until applying pressure to the posterior aspect of her right leg just superior to the knee. She has erythema, obvious fluctuance and severe pain. Concern for abscess. Bedside [id number] ultrasound was performed, patient has 1.5 cm circular abscess about 5 mm under the skin surface. Peers to be loculated. Patient was numbed up using 0.5% bupivacaine 2 mL. Abscess was drained and deloculated with cotton-tipped applicator. Patient was given first dose of Bactrim here. Because patient at baseline without signs or symptoms of clinical decompensation, deemed appropriate for discharge. Results were relayed to patient who voiced understanding and were agreeable to outpatient management and follow up. I discussed my clinical impression with patient and answered all questions. At this time, the evidence for any other entities in the differential is insufficient to warrant any further testing or ED observation. This was explained as well. Advisory was given that persistent or worsening symptoms require further evaluation. I confirmed the understanding of this discussion. Patient sent home with MRSA decolonization protocol from [facility]. Procedures <Salomón Joiner MD - Last Filed: 01/01/25 15:45> Abscess I/D Site: lower extremity Side (if applicable): right Local Anesthetic: bupivacaine 0.5% Amount of anesthesia used (mL): 4 Technique: incised with #11 blade and other (manual deloculation) Amount of fluid expressed (mL): 3 Irrigation: No Packing used?: none Limited Ultrasound Indication:: Limited soft tissue ultrasound Indication: Soft tissue swelling, redness, joint Identified structures: Location: Posterior thigh just superior to the knee on the right Findings: Abscess with minimal surrounding cellulitis Impression: Abscess with surrounding cellulitis posterior aspect of the right thigh Images were saved to permanent archive The study was technically adequate Soft Tissue CPT Codes: CPT Neck: 73379-52 CPT Upper extremity: 99171-74 CPT Axilla: 87298-48 CPT Chest wall: 64516-90 CPT Breast: 12988-41-FS/LT (complete), 28776-90-QN/LT (limited), CPT Upper Back: 20268-36 CPT Lower Back: 51569-19 CPT Abdominal Wall: 43694-03 CPT Pelvic Wall: 40335-60 CPT Lower Extremity: 51370-92 CPT Other Soft Tissue: 44360-35 This study was performed by me, and I personally interpreted all images/videos. Based on my clinical judgement, these images were adequate and did not necessitate further imaging. Critical Care <Stacy Garnett, DO - Last Filed: 01/01/25 15:08> Critical Care Time Critical Care Time: No
[2025-01-01] MEDS: IBUPROFEN 400 MG TABLET 800 MG PO (15:03)
[2025-01-01] MEDS: ACETAMINOPHEN 500MG TAB 1000 MG PO (15:04)
[2025-01-01] MEDS: SULFA/TRIMETHOPRIM 1 TABLET 1 EACH PO (15:21)
[2025-01-01 15:58] VITALS: BP 118/76; PULSE 64; RESP 16; TEMP 36.9; O2SAT 99
== END 2025-01-01 15:59 | disposition home or self-care (01) ==
PROVIDERS: Emergency Provider Emergency Medicine; PCP Internal Medicine
DX: L02.415 Cutaneous abscess of right lower limb (principal); W57.XXXA Bitten or stung by nonvenomous insect and other nonvenomous arthropods, initial encounter
CPT/HCPCS: 10060; 99283